=== PATIENT | female | born 1985 | race Caucasian/White ===

== ENCOUNTER 2016-12-30 12:47 | Day surgery (SDC) | payer OTHER ==
[~2016-12-30] VITALS: Ht 170.2 cm; Wt 89.0 kg
[2016-12-30] VITALS (14 sets, daily range): BP systolic 80–102; BP diastolic 49–63; PULSE 18–75; RESP 15–22; Ht 170.2 cm; Wt 89.0 kg
[2016-12-30] MEDS ORDERED: SOD CHLORIDE 0.9% 1,000 ML IV ONE (13:00)
[2016-12-30] MEDS ORDERED: CEFAZOLIN 2 GM/50 ML (PMX) 50 ML IVPB ONE (13:00)
[2016-12-30] MEDS ORDERED: BUPIVACAINE 0.25% (MPF) 30 ML INJ ONE (14:48)
[2016-12-30] MEDS ORDERED: PROPOFOL 20 ML ONE (14:49)
[2016-12-30] MEDS ORDERED: LIDOCAINE 2% (SDV) 5 ML INJ ONE (14:49)
[2016-12-30] MEDS ORDERED: CEFAZOLIN 1 GM INJ ONE (14:49)
[2016-12-30] MEDS ORDERED: METOCLOPRAMIDE 10 MG INJ ONE (14:50)
[2016-12-30] MEDS ORDERED: MEPERIDINE 100 MG INJ ONE (14:50)
[2016-12-30] MEDS ORDERED: ONDANSETRON 4 MG INJ ONE (14:50)
[2016-12-30] MEDS ORDERED: BUPIVACAINE 0.25% (STERILE-PAK) 30 ML INJ INJ ONE (15:15)
[2016-12-30] MEDS ORDERED: HYDROCODONE/APAP (5/325) TAB PO ONE ×2 (15:30→16:30)
--- NOTE | 2016-12-30 18:08 | OPR ---
DATE OF OPERATION: 12/30/2016 INDICATION: This is a 31-year-old female with a suprapubic mass. She requests surgical excision. Risks, alternatives, benefits, and personnel were discussed with the patient. The patient expressed understanding and consents to the operation. PREOPERATIVE DIAGNOSIS: Suprapubic mass. POSTOPERATIVE DIAGNOSIS: Suprapubic mass. OPERATION PERFORMED: 1. Excision of suprapubic mass with 5 cm size incision and 4 cm size mass. 2. Localized adjacent tissue transfer with the use of skin flaps. SURGEON: Leanna Malin MD SPECIMENS: Suprapubic mass. COMPLICATIONS: None. ANESTHESIA: General. DESCRIPTION OF PROCEDURE: The patient was taken to the OR and prepped and draped in usual sterile f ashion. Surgical timeout was performed. IV antibiotics were given. Incision was made over the sup rapubic mass with a 15 blade. Dissection cautery was carried down circumferentially around the mass . A little piece of the skin was also included in the inferior edge of the incision. The mass was excised. There was good hemostasis. Due to the large tissue defect, a localized adjacent tissue tr ansfer with the use of skin flaps was performed. Multilayer closed with interrupted 3-0 Vicryl and skin eder. Local anesthesia was injected. Dry dressings were applied. Dictated By: LEANNA GAMBOA/NATALIE Conf#: [id number] DID#: [id number]
== END 2016-12-30 17:03 | disposition home or self-care (01) ==
LOC: SDS 12:47
PROVIDERS: ATTEND Surgery
DX: L72.0 Epidermal cyst (principal); E66.9 Obesity, unspecified; Z68.30 Body mass index [BMI] 30.0-30.9, adult
CPT/HCPCS: 14000; 84703; 88304; J0690; J2175; Z7512; Z7610; J2405; J2765